=== PATIENT | female | born 1950 | race Asian ===

== ENCOUNTER 2019-04-11 09:52 | Inpatient (IN) | payer SELFPAY ==
[2019-04-11 10:19] LABS: #Basophils 0.1 thou/uL (0.0-0.2); #Eosinphils 0.1 thou/uL (0.0-0.7); #Lymphocytes 2.1 thou/uL (1.20-3.40); #Monocytes 0.5 thou/uL (0.11-0.59); #Neutrophils 3.2 thou/uL (1.40-6.50); %Basophils 1.3 % (0.0-1.0); %Eosinophils 2.4 % (0.0-10.0); %Lymphocytes 35.1 % (21.0-51.0); %Monocytes 7.9 % (0.0-10.0); %Neutrophils 53.3 % (42.0-75.0); Hemoglobin 15.2 g/dL (12.0-16.0); Mean Corpuscular HGB CONC 33.6 g/dL (32.0-36.0); Mean Corpuscular Hemoglobin 30.5 pg (27.0-31.0); Mean Corpuscular Volume 90.7 fL (78.0-98.0); Mean Platelet Volume 8.1 fL (7.4-10.4); Platelet Count 268 thou/uL (130-400); RBC Distribution Width 11.3 % (11.5-14.5); Red Blood Cell (RBC) Count 4.98 mill/uL (4.20-5.40); White Blood Cell (WBC) Count 6.1 thou/uL (4.8-10.8)
[2019-04-11 10:25] LABS: INR-International Normal Ratio 0.9; PTT 27.2 SEC (22.9-36.1)
--- NOTE | 2019-04-11 10:27 | CT ---
CT Brain WO Con: 04/11/2019 12:00 AM CLINICAL HISTORY: Stroke protocol with left-sided numbness and weakness since last night; history of brain surgery with removal of the tumor in 2012 and 2013. IMAGING TECHNIQUE: Multiple CT images were obtained of the brain without IV contrast. COMPARISON: MR the brain dated December 10, [address] the brain dated January 21, 2013. FINDINGS: Brain: There is encephalomalacia involving the left frontal lobe likely related to the patient's blayne or brain surgery and resection of a very large left frontal convexity meningioma. There is a new oval region of hypodensity involving the right posterior limb of the internal capsule suspicious for an acute to subacute lacunar infarct. There is mild chronic small vessel white matter ischemic change. No acute intracranial hemorrhage is evident. Ventricles: Normal. No hydrocephalus.. Skull: There is a cranial flap overlying the left frontal region.. Visualized Paranasal sinuses: There is mild mucosal thickening within the ethmoid air cells.. Mastoid air cells:Clear. Extracranial soft tissues:Normal. IMPRESSION: Acute to subacute lacunar infarction involving the right posterior limb of the internal capsule. Foll ow-up MRI of the brain with and without contrast is recommended. Encephalomalacia left frontal lobe related to the patient's prior brain surgery and resection of a ve ry large left frontal convexity meningioma. Mild chronic small vessel white matter ischemic change. Findings discussed with Dr. Calles at 10:23 AM on April 11, 2019.
--- NOTE | 2019-04-11 10:37 | RAD ---
Chest AP view INDICATION: Left-sided weakness COMPARISON: None FINDINGS: Lungs:The lungs are clear Cardiac silhouette:The cardiomediastinal silhouette appears within normal limits. Pulmonary vasculature:Normal Pleural spaces:No pleural effusion or pneumothorax is demonstrated. Upper abdomen:No abnormality seen. Osseous structures: No acute osseous abnormality. Additional findings:None. IMPRESSION: No acute cardiopulmonary abnormality.
[2019-04-11 10:43] LABS: ALT (SGPT) 14 U/L (8-55); AST (SGOT) 18 U/L (5-34); Albumin 4.3 g/dL (3.4-4.8); Alkaline Phosphatase 122 U/L (40-110); Anion Gap 12 mmol/L (10-20); BUN (Urea Nitrogen) 12 mg/dL (9.8-20.1); Bilirubin, Total 0.4 mg/dL (0.2-1.2); Calc. Creatinine Clearance 0 mL/min (70-130); Calcium 9.6 mg/dL (7.8-10.44); Carbon Dioxide 29 mmol/L (23-31); Chloride 102 mmol/L (98-107); Estimated GFR-MDRD 71; Globulin 3.7 g/dL (2.4-3.5); Glucose 110 mg/dL (80-115); Potassium 3.3 mmol/L (3.5-5.1); Sodium 140 mmol/L (136-145)
[2019-04-11] MEDS ORDERED: Aspirin Chewable 81 MG TAB ONE (11:28)
[2019-04-11] MEDS ORDERED: Ondansetron ODT 4 MG TAB PO PRN (12:49)
[2019-04-11] MEDS ORDERED: Bisacodyl 10 MG SUPP PR PRN (12:49)
[2019-04-11] MEDS ORDERED: Calcium Carbonate 500 MG ChewTAB PO PRN (12:49)
[2019-04-11] MEDS ORDERED: Ondansetron PF 4 MG/2 ML Vial IVP PRN (12:49)
[2019-04-11] MEDS ORDERED: Senokot S 8.6-50 MG TAB PO PRN (12:49)
[2019-04-11] MEDS ORDERED: Acetaminophen 325 MG TAB PO PRN (12:49)
[2019-04-11] MEDS ORDERED: hydrALAZINE 20 MG/ML VIAL SLOW IVP PRN (12:52)
[2019-04-11] MEDS ORDERED: NS 0.9% w/ 20 MEQ KCL 1,000 ML/1,000 ML BAG IV SCH (13:00)
[2019-04-11] MEDS ORDERED: Lorazepam 1 MG TAB ONE (13:23)
--- NOTE | 2019-04-11 13:51 | HP ---
PRIMARY CARE PHYSICIAN: None. CHIEF COMPLAINT: Stroke-like symptoms. HISTORY OF PRESENT ILLNESS: The patient is a 69-year-old female with meningioma, status post resection, presented to the emergency room with above complaints. The patient woke up at 6:00 a.m. with left-sided weakness and numbness. She was last seen normal at 11:00 p.m. She had some dizziness without any vertigo yesterday. She denies any other symptoms at this time. She was unable to ambulate due to the weakness. No chest pain, palpitations, headache, double vision, blurring of vision, facial asymmetry, weakness, numbness of the other extremity reported. She does not take aspirin on a daily basis. She had a history of meningioma that was resected more than 6 years ago without any followup. PAST MEDICAL HISTORY: 1. Meningioma, status post resection. 2. Mild intermittent asthma. PAST SURGICAL HISTORY: As discussed above. ALLERGIES: NO KNOWN DRUG ALLERGIES. CURRENT HOME MEDICATION: Qcip-kyr-axqbbke multivitamins. SOCIAL HISTORY: The patient is from [facility]. She has been residing here with her family. No current use of tobacco or alcohol reported. FAMILY HISTORY: Negative for premature coronary artery disease. REVIEW OF SYSTEMS: All other review of systems were reviewed and were found negative. PHYSICAL EXAMINATION: VITAL SIGNS: Temperature 98.2, respirations of 19, pulse rate of 104, blood pressure initially of 203/96 with O2 saturation of 100% on room air. GENERAL: A 69-year-old female, in no apparent distress, weakness, slowly improving. HEENT: Head atraumatic and normocephalic. Sclerae anicteric. Moist mucous membranes. No oral lesion. NECK: Supple. No JVD appreciated. No carotid bruits. LUNGS: Clear to auscultation bilaterally. No wheezing, rales, or rhonchi. HEART: S1 and S2 present. Regular rate and rhythm. No rubs or gallops. ABDOMEN: Soft, nontender. Bowel sounds present. EXTREMITIES: No edema or calf tenderness. NEUROLOGIC: Cranial nerves 2 through 12 are normal on examination. Power was 4/5 in the left upper and left lower extremity. Ajiixu-gq-trdk test was normal on the right. Sensation to touch was normal bilaterally. Reflexes were equivocal. SKIN: Warm and dry. PSYCHIATRY: Alert, awake, oriented x3. LYMPH NODES: No palpable lymph nodes in the neck. LABORATORY DATA: Diagnostic tests: EKG by my review showed sinus rhythm. Potassium 3.3, sodium 140, BUN 12, creatinine 0.8. Hemoglobin of 15.2 with WBC 6.1, platelet 268. IMAGING STUDIES: Chest x-ray by my review was negative for infiltrate. CT scan of the brain by my review showed acute to subacute lacunar infarction involving the right posterior limb of the internal capsule. IMPRESSION: 1. Acute right middle cerebral artery distribution cerebrovascular accident. 2. History of meningioma, status post resection without any recent followup. 3. Mild intermittent asthma. 4. Chronic kidney disease stage 2. 5. Hypokalemia. PLAN: 1. The patient will be monitored in the stroke unit. She has been started on aspirin. We will add statins. Consult Physical therapy and Occupational Therapy. We will get MRI with and without contrast due to history of meningioma. Echocardiogram will be obtained. Replace potassium. Check fasting lipid profile in a.m. DVT prophylaxis. 2. P.r.n. nebulizer treatment as needed. Plan of care was discussed with the patient and the family in detail, they stated understanding. Job ID: [id number]
[2019-04-11 14:34] VITALS: BMI 24.5
[2019-04-11] MEDS: Potassium Chloride 10 MEQ TAB PO SCH (18:07)
[2019-04-11] MEDS: Melatonin 3 MG TAB PO SCH (19:23)
[2019-04-11] MEDS: Atorvastatin Calcium 40 MG TAB PO SCH (20:47)
[2019-04-11] MEDS: Famotidine 20 MG TAB PO SCH (20:47)
[2019-04-11] MEDS ORDERED: Melatonin 3 MG TAB PO SCH (21:00)
[2019-04-12 06:30] LABS: Cardiac Risk 3.4 (Less than 4.5); Cholesterol 182 mg/dl (< 200 Desired); HDL Cholesterol 54 mg/dL (>60 Neg Risk); LDL Cholesterol, Calculated 111 mg/dL; Potassium 4.3 mmol/L (3.5-5.1); Triglycerides 86 mg/dL (Less than 150)
--- NOTE | 2019-04-12 08:54 | MRI ---
MRI brain with and without gadolinium contrast HISTORY: CVA. Left-sided weakness. COMPARISON: MRI 01/16/2013. CT 04/11/2019. FINDINGS: Within the posterolateral aspect of the right thalamus abutting the posterior limb of the r ight internal capsule is an oval focus of increased signal on the diffusion weighted images that measures 0.9 cm greatest diameter. Corresponding signal defect on the EDC mapping images. This area i s also hyperintense on the FLAIR and T2-weighted images and hypointense on the T1-weighted images. It correlates with the abnormality on recent CT scan. No abnormal enhancement here or elsewhere. Postoperative changes of the left frontal calvarium and underlying encephalomalacia are stable and co nsistent with prior tumor resection. Ventricles are unremarkable. IMPRESSION: Small subacute acute infarct at the right thalamus, abutting the posterior limb of the ri ght internal capsule. Stable postoperative findings of the left frontal lobe.
[2019-04-12] MEDS: Aspirin 81 mg Enteric Coated Tablet PO SCH (09:13)
[2019-04-12] MEDS: Potassium Chloride 10 MEQ TAB PO SCH (09:13)
[2019-04-12] MEDS: Famotidine 20 MG TAB PO SCH ×2 (09:13→20:16)
[2019-04-12] MEDS: Enoxaparin Sodium 40 MG/0.4 ML SYRINGE SC SCH (09:14)
--- NOTE | 2019-04-12 17:27 | PDOC.HOSPP ---
- Subjective Encounter Date: 04/12/19 Encounter Time: 10:00 Subjective: Patient seen and examined for Acute CVA. No new focal deficits. Left sided weakness improving. No new complaints. No overnight events - Objective Vital Signs & Weight: Vital Signs (12 hours) Temp Pulse Pulse Pulse Resp BP BP 04/12/19 15:35 98.2 F 79 16 04/12/19 11:45 97.7 F 69 16 04/12/19 10:08 80 77 161/77 H 155/78 H 04/12/19 10:05 80 77 161/77 H 155/78 H 04/12/19 08:14 04/12/19 08:00 97.5 F L 70 16 BP Pulse Ox 04/12/19 15:35 188/86 H 99 04/12/19 11:45 141/73 H 97 04/12/19 10:08 04/12/19 10:05 04/12/19 08:14 97 04/12/19 08:00 189/80 H 97 Weight Admit Weight 125 lb 8 oz Weight 125 lb 8 oz I&O: 04/11/19 04/12/19 04/13/19 06:59 06:59 06:59 Intake Total 409 Balance 409 Result Diagrams: 04/11/19 10:05 04/12/19 04:45 Radiology Reviewed by me: Yes (MRI brain - Acute CVA) EKG Reviewed by me: Yes (Tele SR) Hospitalist ROS - Review of Systems Respiratory: denies: cough, dry, shortness of breath, hemoptysis, SOB with excertion, pleuritic pain, sputum, wheezing, other Cardiovascular: denies: chest pain, palpitations, orthopnea, paroxysmal noc. dyspnea, edema, light headedness, other - Medication Medications: Active Medications Generic Name Dose Route Start Last Admin Trade Name Freq PRN Reason Stop Dose Admin Aspirin 81 mg 04/12/19 09:00 04/12/19 09:13 Ecotrin PO 81 mg DAILY JULIA Administration Atorvastatin Calcium 40 mg 04/11/19 21:00 04/11/19 20:47 Lipitor PO 40 mg HS JULIA Administration Enoxaparin Sodium 40 mg 04/12/19 09:00 04/12/19 09:14 Lovenox SC 40 mg 0900 JULIA Administration Famotidine 20 mg 04/11/19 21:00 04/12/19 09:13 Pepcid PO 20 mg BID JULIA Administration Melatonin 3 mg 04/11/19 20:00 04/11/19 19:23 Melatonin PO 3 mg 2000 JULIA Administration - Exam General Appearance: NAD Heart: RRR, no gallops Respiratory: CTAB, no rales Gastrointestinal: soft, normal bowel sounds Extremities: no edema Neurological: no new deficit Hosp A/P - Plan DVT proph w/SCDs 1. Acute CVA 2. History of meningioma, status post resection without any recent followup. 3. Mild intermittent asthma. 4. Chronic kidney disease stage 2. 5. Hypokalemia. 6. HTN PLAN: Cont ASA/Statins Add low dose Amlodipine Stroke team Cont other meds
[2019-04-12] MEDS ORDERED: Amlodipine 5 MG TAB PO SCH (17:30)
[2019-04-12] MEDS: Melatonin 3 MG TAB PO SCH (18:56)
[2019-04-12] MEDS: Atorvastatin Calcium 40 MG TAB PO SCH (20:14)
[2019-04-13] MEDS: traZODone HCl 50 MG TAB PO PRN ×2 (00:09→20:13)
[2019-04-13] MEDS: Amlodipine 5 MG TAB PO SCH (09:15)
[2019-04-13] MEDS: Famotidine 20 MG TAB PO SCH ×2 (09:15→20:14)
[2019-04-13] MEDS: Enoxaparin Sodium 40 MG/0.4 ML SYRINGE SC SCH (09:16)
[2019-04-13] MEDS: Aspirin 81 mg Enteric Coated Tablet PO SCH (09:16)
--- NOTE | 2019-04-13 19:26 | ULT ---
BILATERAL CAROTID DUPLEX ULTRASOUND: 04/13/19 HISTORY: CVA. TECHNIQUE: Locke scale ultrasound with color flow and spectral Doppler imaging of the extracranial carotid artery system is performed bilaterally. FINDINGS: There is plaque formation on both sides. The peak systolic velocity in the right ICA measures 58 cm/s with an end diastolic velocity of 16 cm/ s and a systolic ratio of 0.66. The peak systolic velocity in the left ICA measures 46 cm/s with an end diastolic velocity of 8 cm/s and a systolic ratio of 0.50. Flow in both vertebral arteries remains antegrade. IMPRESSION: No evidence of hemodynamically significant stenosis in either ICA. POS: MZA
--- NOTE | 2019-04-13 20:02 | PDOC.HOSPP ---
- Subjective Encounter Date: 04/13/19 Encounter Time: 20:02 Subjective: Patient seen and examined for Acute CVA. Left sided weakness improving. No CP. No new complaints. No overnight events - Objective Vital Signs & Weight: Vital Signs (12 hours) Temp Pulse Pulse Pulse Resp BP BP 04/13/19 15:10 97.9 F 67 12 04/13/19 11:03 97.4 F L 66 16 04/13/19 09:50 72 66 173/74 H 04/13/19 09:15 71 135/74 04/13/19 09:00 BP BP Pulse Ox 04/13/19 15:10 128/58 L 98 04/13/19 11:03 134/72 97 04/13/19 09:50 135/65 04/13/19 09:15 04/13/19 09:00 96 Weight Admit Weight 125 lb 8 oz Weight 125 lb 8 oz I&O: 04/12/19 04/13/19 04/14/19 06:59 06:59 06:59 Intake Total 409 1610 660 Output Total 2 Balance 409 1608 660 Result Diagrams: 04/11/19 10:05 04/12/19 04:45 EKG Reviewed by me: Yes (Tele SR) Hospitalist ROS - Review of Systems Cardiovascular: denies: chest pain, palpitations, orthopnea, paroxysmal noc. dyspnea, edema, light headedness, other Gastrointestinal: denies: nausea, vomiting, abdominal pain, diarrhea, constipation, melena, hematochezia, other - Medication Medications: Active Medications Generic Name Dose Route Start Last Admin Trade Name Freq PRN Reason Stop Dose Admin Acetaminophen 650 mg 04/11/19 12:49 04/12/19 18:56 Tylenol PO 650 mg Q4H PRN Administration Headache/Fever/Mild Pain (1-3) Amlodipine Besylate 2.5 mg 04/13/19 09:00 04/13/19 09:15 Norvasc PO 2.5 mg DAILY JULIA Administration Aspirin 81 mg 04/12/19 09:00 04/13/19 09:16 Ecotrin PO 81 mg DAILY JULIA Administration Atorvastatin Calcium 40 mg 04/11/19 21:00 04/12/19 20:14 Lipitor PO 40 mg HS JULIA Administration Enoxaparin Sodium 40 mg 04/12/19 09:00 12/03/19 09:16 Lovenox SC 40 mg 0900 JULIA Administration Famotidine 20 mg 04/11/19 21:00 04/13/19 09:15 Pepcid PO 20 mg BID JULIA Administration Melatonin 3 mg 04/11/19 20:00 04/12/19 18:56 Melatonin PO 3 mg 2000 JULIA Administration Trazodone HCl 50 mg 04/12/19 23:35 04/13/19 00:09 Desyrel PO 50 mg HS PRN Administration Insomnia - Exam General Appearance: NAD Heart: RRR, no gallops Respiratory: CTAB, no rales Gastrointestinal: soft, non-tender, normal bowel sounds Extremities: no edema Neurological: no new deficit Psychiatric: A&O x 3 Hosp A/P - Plan DVT proph w/lovenox, DVT proph w/SCDs 1. Acute CVA 2. History of meningioma, status post resection without any recent followup. 3. Mild intermittent asthma. 4. Chronic kidney disease stage 2. 5. Hypokalemia. 6. HTN PLAN: Cont ASA/Statins Cont Amlodipine Carotid doppler negative Cont other meds Cont PT/OT DC in AM if stable
[2019-04-13] MEDS: Atorvastatin Calcium 40 MG TAB PO SCH (20:13)
[2019-04-13] MEDS: Melatonin 3 MG TAB PO SCH (20:14)
--- NOTE | 2019-04-14 00:13 | CON ---
DATE OF CONSULTATION: 04/13/2019 CONSULTING PHYSICIAN: Hospitalist Service. IMPRESSION: 1. Lacunar infarct in the right thalamus resulting in some left-sided dysmetria. 2. Mild hyperglycemia. PLAN: 1. Aspirin 81 mg per day. 2. Low-dose statin. 3. Carotid ultrasound. 4. Address blood sugars if necessary. HISTORY OF PRESENT ILLNESS: Ms. Rosado is a 69-year-old woman who has no significant past history and was on no medication. She awoke and found that she could not walk. Her left arm and leg felt clumsy. There was no affect on her speech or swallowing. She had no history of TIA. She was on no medications. She came in for evaluation. She was noted to be mildly hypertensive and have a blood sugar of 137. Her MRI revealed a right thalamic infarct. Echocardiogram showed a normal ejection fraction of 55% to 60%. Her lipid ratio was 3.4. Remainder of her lab was otherwise unremarkable. PAST MEDICAL HISTORY: Otherwise negative. ALLERGIES: NONE REPORTED. SOCIAL HISTORY: No tobacco or alcohol. PAST SURGICAL HISTORY: Meningioma resection in 2016. FAMILY HISTORY: Noncontributory. REVIEW OF SYSTEMS: Ten-system review of systems is otherwise negative. PHYSICAL EXAMINATION: GENERAL: She is a healthy-appearing elderly woman, sitting at the bedside. HEENT: Pupils are equal and reactive. Conjunctivae clear. Oropharynx clear. NECK: Supple. No lymphadenopathy. EXTREMITIES: No cyanosis or edema. NEUROLOGIC: She is alert and cooperative. Her speech is fluent and clear. Cranial nerves were intact. Motor exam showed good antigravity strength bilaterally. She had dysmetria on [id number] testing on the left. Rapid alternating movements were diminished on the left. Sensation was intact. She has trouble walking independently and has to use a cane to maintain balance. LABORATORY STUDIES: EKG showed normal sinus rhythm. SUMMARY: A 69-year-old woman with acute lacunar infarction. I agree with current medical management and workup. Job ID: [id number]
[2019-04-14 00:24] VITALS: TEMP 97.4
[2019-04-14] MEDS: Famotidine 20 MG TAB PO SCH ×2 (09:07→12:24)
[2019-04-14] MEDS: Enoxaparin Sodium 40 MG/0.4 ML SYRINGE SC SCH ×2 (09:07→12:24)
[2019-04-14] MEDS: Amlodipine 5 MG TAB PO SCH ×2 (09:07→12:23)
[2019-04-14] MEDS: Aspirin Chewable 81 MG TAB ONE ×3 (09:07→17:24)
[2019-04-14] MEDS: Aspirin 81 mg Enteric Coated Tablet PO SCH (12:23)
--- NOTE | 2019-04-14 12:39 | DIS ---
DATE OF ADMISSION: 04/11/2019 DATE OF DISCHARGE: 04/14/2019 DISCHARGE DISPOSITION: Home. FOLLOWUP: 1. Follow up with primary care physician at [facility] in 1 week. 2. Follow up with Neurology, Dr. Yoel Trevino in 2 to 3 weeks. ALLERGIES: NO KNOWN DRUG ALLERGIES. THE PATIENT WAS SEEN AND EXAMINED ON THE DAY OF DISCHARGE. DENIES ANY NEW COMPLAINTS. LEFT-SIDED WEAKNESS IS SIGNIFICANTLY IMPROVED. DISCHARGE MEDICATIONS: 1. Aspirin 81 mg daily. 2. Lipitor 40 mg at bedtime. 3. Amlodipine as needed for systolic blood pressure over 160. 4. Benadryl as needed. INPATIENT UX VISUAL DESIGNER: Neurology, Dr. Trevino. BRIEF HOSPITAL COURSE: The patient is a 69-year-old female with history of meningioma in the past, presented to the emergency room on 11 April 2019 with left-sided weakness. She was admitted to the Stroke Unit. An MRI of the brain was positive for small acute infarction at the right thalamus abutting the posterior limb of the right internal capsule. An echocardiogram showed normal left ventricular ejection fraction 55% to 60% with diastolic dysfunction, mild mitral regurgitation, mild tricuspid regurgitation. Carotid Doppler was negative. Telemetry monitoring was negative for significant arrhythmia. The patient was evaluated by Neurology, Dr. Trevino. Dr. Trevino recommended low-dose aspirin along with statins. A fasting lipid profile showed LDL of 111 with cholesterol 182, HDL of 54 with triglyceride 86. She has been cleared by consultants for discharge. FINAL DIAGNOSES: 1. Acute cerebrovascular accident in the right MCA distribution causing left-sided weakness. 2. Hypokalemia, replaced. 3. History of meningioma, status post resection in the past. 4. Mild intermittent asthma. 5. Hypertension. The patient was started on amlodipine, however, her blood pressure on the day of discharge is 114/60. The patient was advised to monitor blood pressure on a daily basis and to maintain a log. PLAN: Plan of care was discussed with the patient in detail. She stated understanding. Job ID: [id number]
[2019-04-14 15:25] VITALS: BP 130/61
== END 2019-04-14 17:54 | disposition home or self-care (01) | DRG 65 ==
LOC: ERS 09:52 → 2SE 11:42
PROVIDERS: ADMIT Internal Medicine; ATTEND Internal Medicine
DX: I63.511 Cerebral infarction due to unspecified occlusion or stenosis of right middle cerebral artery (principal); G81.94 Hemiplegia, unspecified affecting left nondominant side; E87.6 Hypokalemia; J45.20 Mild intermittent asthma, uncomplicated; N18.2 Chronic kidney disease, stage 2 (mild); I12.9 Hypertensive chronic kidney disease with stage 1 through stage 4 chronic kidney disease, or unspecified chronic kidney disease; R29.702 NIHSS score 2; R40.2362 Coma scale, best motor response, obeys commands, at arrival to emergency department; R40.2142 Coma scale, eyes open, spontaneous, at arrival to emergency department; R40.2252 Coma scale, best verbal response, oriented, at arrival to emergency department; Z86.011 Personal history of benign neoplasm of the brain
CPT/HCPCS: 36415; 36416; 70450; 70553; 71045; 80053; 80061; 83735; 84132; 84484; 85025; 85610; 85730; 93005; 93306; 93880; J1650; J3480

== ENCOUNTER 2019-06-03 14:39 | Outpatient (CLI) | payer OTHER ==
--- NOTE | 2019-06-03 15:52 | RAD ---
LEFT RIBS 3 VIEWS: HISTORY: Rib pain. FINDINGS: No evidence of rib fracture identified. No rib lesion. The left lung appears clear. IMPRESSION: No acute finding. POS: C
== END 2019-06-03 14:40 | disposition home or self-care (01) ==
LOC: BICRAD 14:39
PROVIDERS: ATTEND Family Medicine
DX: R07.81 Pleurodynia (principal)